=== PATIENT | male | born 1960 | race Caucasian/White ===

== ENCOUNTER → 2022-08-22 | Day surgery (SDC) | payer SELFPAY ==
[~2022-08-22] MED LIST: LACTATED RINGER'S 1,000 ML ONE; OR PHACO EYE KIT ONE; PREOP PHACO EYE KIT ONE; TRAZODONE HCL100 MG PO
[2022-08-22 12:21] VITALS: TEMP 97.5
[2022-08-22 12:41] VITALS: BP 150/88; PULSE 84; RESP 18; O2SAT 98
== END | disposition home or self-care (01) ==
LOC: OR 09:48
PROVIDERS: ATTEND Ophthalmology
DX: H25.12 Age-related nuclear cataract, left eye (principal); M17.11 Unilateral primary osteoarthritis, right knee; F17.210 Nicotine dependence, cigarettes, uncomplicated; Z79.1 Long term (current) use of non-steroidal anti-inflammatories (NSAID)
CPT/HCPCS: 66984; J7121

== ENCOUNTER → 2022-09-26 | Day surgery (SDC) | payer SELFPAY ==
[~2022-09-26] MED LIST changes: +FENTANYL CITRATE/PF 100MCG/2 ML INJ ONE; +MIDAZOLAM HCL 2 MG/2 ML VIAL ONE; +ONDANSETRON HCL INJ 2MG/ML 2ML 2 MG/ML VIAL ONE; +POVIDONE IODINE 0.05% 0.05 % ML PO ONE
[2022-09-26 09:33] VITALS: TEMP 97
[2022-09-26 09:45] VITALS: BP 147/87; PULSE 77; RESP 16; O2SAT 99
== END | disposition home or self-care (01) ==
LOC: OR 07:37
PROVIDERS: ATTEND Ophthalmology
DX: H25.11 Age-related nuclear cataract, right eye (principal); F17.210 Nicotine dependence, cigarettes, uncomplicated; Z88.0 Allergy status to penicillin
CPT/HCPCS: 66984; J2250; J2405; J3010; J7121; V2632